=== PATIENT | female | born 1940 | race Caucasian/White ===

== ENCOUNTER 2020-03-04 09:03 | Day surgery (SDC) | payer MEDICARE, OTHER ==
[~2020-03-04] VITALS: Ht 167.6 cm; Wt 70.0 kg
[~2020-03-04 09:03] MED LIST: ASPIRIN325 MG PO; ESTER-C 500 MG1 EACH PO; LEVOTHYROXINE75 MCG PO; VITAMIN D2000 UNI1 PO
--- NOTE | 2020-03-04 11:23 | NUR ---
03/04/20 1122 Ashley Zelaya 1116 PT ARRIVED TO PACU ON RA, PT WAKES EASILY AND IS REORIENTED TO PACU. PT DENIES PAIN AND NAUSEA. RESP EVEN AND UNLABORED. VSS. PLAN OF CARE DISCUSSED. 1122 PT RESTING WITH EYES CLOSED VSS.
--- NOTE | 2020-03-05 08:31 | OR ---
[facility] [address], [place] [address] Signed DATE OF OPERATION: 03/04/2020 SURGEON: Joel Corral MD PREOPERATIVE DIAGNOSES: 1. Personal history of colonic polyps. 2. Minimal internal hemorrhoids. 3. Minimal left-sided diverticulosis. 4. Change in bowel habits with loose stool gas and bloating. POSTOPERATIVE DIAGNOSES: 1. Minimal sigmoid diverticulosis. 2. Minimal internal hemorrhoids. PROCEDURE: Colonoscopy without biopsy. ESTIMATED BLOOD LOSS: None. INDICATIONS: Arian Garcia is a 79-year-old female, asked to see me for followup colonoscopy. In 2007 at the age of 67, she had a serrated adenomatous polyp removed at 18 cm. She is known to have minimal internal hemorrhoid tissue. She came back in 2010 and again had minimal internal hemorrhoid tissue along with minimal sigmoid diverticulosis. She returned once again in 2015 and again has minimal left-sided diverticulosis. She always does well with Versed and fentanyl. However in June of 2019 of this year, she found out her was diagnosed with lymphoma and diabetes. She said it was very stressful. She has been following along with her oncologist and things are much more stable and they had improved. However, she noticed a change in bowel habits with loose stool, even intermittent diarrhea along with gas and bloating. She told me today that is actually better now quite so severe. In addition, the COVID virus came out situation with the fact that she cannot get out and socialize with her friends. She had been to her primary care provider with respect to the above. It was felt she would be well served to come here or really have followup colonoscopy with respect to her symptoms. I gave Arian Garcia a pamphlet on colonoscopy and we reviewed the nature of the test along with the risks including, but not limited to gas bloating, crampy abdominal pain, bleeding, perforation requiring surgery, and missed diagnosis. We had reviewed the written instructions for the bowel prep line by line. She recalls the need for the Versed and fentanyl. She had expressed understanding and wished to proceed. Electronically Signed By: JOEL CORRAL MD 03/05/20 0831 PATIENT NAME: ARIAN KHALIL OPERATIVE REPORT DATE OF : 44 REPORT #: [id number] PHYSICIAN: JOEL CORRAL MD PCP: AQUILES VERAS MD REPORT IS CONFIDENTIAL AND NOT TO BE RELEASED WITHOUT AUTHORIZATION [facility] [address], [place] [address] Signed PROCEDURE NOTE: Arian Garcia was taken into our endoscopy suite and placed in the left lateral decubitus position. She was given 5 mg of Versed and 100 mcg of fentanyl to cover the case. A digital rectal exam was performed and this was unremarkable. The adult colonoscope was introduced and advanced quite readily all the way around into the cecum under direct visualization of camera without difficulty. Her prep was quite good. We could easily see the appendiceal orifice and the ileocecal valve. The scope was slowly withdrawn. Again, she has just a few diverticula in the sigmoid colon. No polyps noted. No inflammatory changes. Since her symptoms had improved, we did not take any random biopsies on this occasion. The rectum was unremarkable. Upon retroflexion of scope again, she has just minimal internal hemorrhoid columns. After this, the gas was suctioned out and the colonoscope removed. Arian Garcia tolerated the procedure quite well. RECOMMENDATIONS: Arian Garcia is welcome to return in 5 years for a repeat colonoscopy so long as her health holds up. Joel Corral MD ALB/MODL /[id number] cc: MD Aquiles Van MD Copies: JOEL CORRAL MD, MALCOLM MD ~ Electronically Signed By: JOEL CORRAL MD 03/05/20 0831 PATIENT NAME: ARIAN KHALIL OPERATIVE REPORT DATE OF : 44 REPORT #: [id number] PHYSICIAN: JOEL CORRAL MD PCP: AQUILES VERAS MD REPORT IS CONFIDENTIAL AND NOT TO BE RELEASED WITHOUT AUTHORIZATION
== END 2020-03-04 11:58 | disposition home or self-care (01) ==
LOC: OPS 09:03 → DS 09:03 → OPS 10:30
PROVIDERS: ATTEND Colon & Rectal Surgery
PROC: 0DJD8ZZ Inspection of Lower Intestinal Tract, Via Natural or Artificial Opening Endoscopic (ICD-10-PCS; principal; 2020-03-04 10:30)
DX: K57.30 Diverticulosis of large intestine without perforation or abscess without bleeding (principal); K64.8 Other hemorrhoids; E03.9 Hypothyroidism, unspecified; Z79.899 Other long term (current) drug therapy; Z79.890 Hormone replacement therapy; Z86.010 Personal history of colon polyps
CPT/HCPCS: 99153; G0500; J2250; J3010; J7121